=== PATIENT | male | born 1970 | race Two or more races ===

== ENCOUNTER 2019-08-01 13:09 | Emergency (ER) | payer OTHER ==
[~2019-08-01] VITALS: Ht 172.7 cm; Wt 93.0 kg
[~2019-08-01 13:09] MED LIST: INTESTINEX680 M1 PO; OXYC1TAB9 PO
[2019-08-01] MEDS ORDERED: METOPROLOL SUCC25 MG (13:49)
== END 2019-08-01 22:02 | disposition home or self-care (01) ==
LOC: ER 13:09
DX: K76.0 Fatty (change of) liver, not elsewhere classified (principal); R10.84 Generalized abdominal pain